=== PATIENT | female | born 1950 | race Hispanic/Latino ===

== ENCOUNTER → 2018-03-23 | Outpatient (CLI) | payer MEDICARE ==
[~2018-03-23] MED LIST: ASPI-555 PO; FURO20TA4 PO; LORA10TA7 PO; OMEP20CA10 PO; OXYB5TAB10 PO; POTA-79 PO; PREG50 PO; SERT100T12 PO
== END | disposition home or self-care (01) ==
LOC: OIH 07:42
PROVIDERS: ATTEND Surgery
DX: K40.90 Unilateral inguinal hernia, without obstruction or gangrene, not specified as recurrent (principal); K57.90 Diverticulosis of intestine, part unspecified, without perforation or abscess without bleeding; I70.90 Unspecified atherosclerosis; M47.895 Other spondylosis, thoracolumbar region
CPT/HCPCS: 74176

== ENCOUNTER 2018-08-03 11:30 | Observation (INO) | payer MEDICARE ==
[~2018-08-03] VITALS: Ht 149.9 cm; Wt 86.8 kg
[~2018-08-03 11:30] MED LIST changes: -FURO20TA4 PO; -OMEP20CA10 PO; -POTA-79 PO; -PREG50 PO; -SERT100T12 PO
[2018-08-03] MEDS ORDERED: RANI150T7 PO (12:51)
[2018-08-03] MEDS ORDERED: ALEN70TA10 PO (12:51)
[2018-08-03] MEDS ORDERED: CHOL500050 PO (12:51)
[2018-08-03] MEDS ORDERED: SIMV40TA59 PO (12:51)
[2018-08-03] MEDS ORDERED: EMPA1TAB11 PO (12:51)
[2018-08-03] MEDS ORDERED: MONT10TA24 PO (12:51)
[2018-08-03] MEDS ORDERED: MULT-1258 PO (12:51)
[2018-08-03] MEDS ORDERED: FURO40TA5 PO (12:51)
[2018-08-03] MEDS ORDERED: ACET650T9 PO (12:51)
[2018-08-03] MEDS ORDERED: ESCI10TA54 PO (12:51)
[2018-08-03] MEDS ORDERED: IBUP-2070 PO (12:51)
[2018-08-03] MEDS ORDERED: SPIR50TA5 PO (12:51)
[2018-08-03 12:53] VITALS: BP 132/60
[2018-08-03] MEDS ORDERED: LOSA50TA64 PO (13:34)
[2018-08-04] VITALS (24 sets, daily range): BP systolic 100–164; BP diastolic 46–81
[2018-08-04] MEDS: CEFAZOLIN SODIUM 1 GM VIAL IVP SCH ×3 (05:00→18:27)
[2018-08-04] MEDS ORDERED: LACTATED RINGERS 1000ML 1,000 ML IV ONE (10:30)
--- NOTE | 2018-08-04 10:30 | NUR ---
DIABETIC pt denies she is diabetic ,is taking synjardy 12.5/500mg for weight loss
[2018-08-04] MEDS ORDERED: ROPIVACAINE 0.5% 5MG/ML 30ML IJ ONE (11:10)
[2018-08-04] MEDS ORDERED: DEXAMETHASONE SOD PHOSPHATE 10MG/ML 1ML VIAL ONE (12:37)
[2018-08-04] MEDS ORDERED: MIDAZOLAM HCL 1 MG/ML 2ML VIAL ONE (12:37)
[2018-08-04] MEDS ORDERED: LIDOCAINE PF 2% 5ML ABBOJECT ONE (12:37)
[2018-08-04] MEDS ORDERED: ONDANSETRON HCL 4 MG/2 ML VIAL ONE ×2 (12:37→15:34)
[2018-08-04] MEDS ORDERED: PROPOFOL 10 MG/ML 20ML VIAL IV ONE (12:37)
[2018-08-04] MEDS ORDERED: FENTANYL CITRATE PF 50 MCG/1 ML 2ML VIAL ONE (12:38)
[2018-08-04] MEDS ORDERED: ROCURONIUM 10MG/1ML SYR 10 MG/ML ML ONE (12:41)
[2018-08-04] MEDS ORDERED: EPHEDRINE SULFATE 50 MG/ML AMPULE ONE (12:54)
[2018-08-04] MEDS ORDERED: NEOSTIGMINE 5MG/5ML SYR IV ONE (14:14)
[2018-08-04] MEDS ORDERED: GLYCOPYRROLATE 1 MG/5 ML SYRINGE ONE (14:14)
[2018-08-04] MEDS ORDERED: MAGNESIUM HYDROXIDE 30 ML/UDCUP PO PRN (16:15)
[2018-08-04] MEDS ORDERED: BISACODYL 10 MG SUPP.RECT RC PRN (16:15)
[2018-08-04] MEDS ORDERED: ACETAMINOPHEN 325 MG TAB PO PRN ×2 (16:15→22:15)
[2018-08-04] MEDS ORDERED: DEXTROSE 5%-LACTATED RINGERS 1,000 ML IV SCH (16:15)
[2018-08-04] MEDS ORDERED: PROMETHAZINE HCL 25 MG/ML 1ML AMPULE IM PRN (16:15)
[2018-08-04 18:56] LABS: HEMATOCRIT 36.1 % (36-48)
--- NOTE | 2018-08-04 22:20 | NUR ---
consult hospitalist sherry cervantes pac to see and examen patient with orders
[2018-08-04] MEDS: MORPHINE SULFATE 10 MG/ML 1ML VIAL IM PRN (23:08)
[2018-08-05] VITALS: BP 106/40
[2018-08-05 00:47] LABS: HEMATOCRIT 33.3 % (36-48)
[2018-08-05] MEDS: CEFAZOLIN SODIUM 1 GM VIAL IVP SCH ×2 (02:24→11:01)
[2018-08-05] MEDS ORDERED: HYDROMORPHONE 1 MG/1 ML AMP ONE (02:26)
[2018-08-05] MEDS ORDERED: HYDROMORPHONE HCL 2 MG/ML VIAL IVP ONE (02:30)
[2018-08-05 04:00] VITALS: BP 119/57
[2018-08-05] MEDS ORDERED: HYDROCODONE/ACETAMINOPHEN 5/325 MG TAB ONE (05:57)
[2018-08-05] MEDS ORDERED: HYDROCODONE/ACETAMINOPHEN 5/325 MG TAB PO PRN (06:00)
[2018-08-05 06:06] LABS: HEMATOCRIT 34.9 % (36-48)
[2018-08-05 08:00] VITALS: BP 116/57
[2018-08-05] MEDS ORDERED: LOSARTAN 50 MG TABLET PO SCH (09:00)
[2018-08-05] MEDS ORDERED: ASPIRIN 81 MG EC TAB PO SCH (09:00)
[2018-08-05] MEDS ORDERED: FUROSEMIDE 40 MG TABLET PO SCH (09:00)
[2018-08-05] MEDS ORDERED: CITALOPRAM 20 MG TABLET PO SCH (09:00)
[2018-08-05] MEDS ORDERED: SPIRONOLACTONE 25 MG TAB PO SCH (09:00)
[2018-08-05] MEDS ORDERED: RANITIDINE HCL 15 MG/1 ML PO SCH (09:00)
[2018-08-05] MEDS ORDERED: LORATADINE 10 MG TABLET PO SCH (09:00)
[2018-08-05] MEDS: MORPHINE SULFATE 10 MG/ML 1ML VIAL IM PRN (09:01)
[2018-08-05] MEDS: OXYBUTYNIN CHLORIDE 5 MG TABLET PO SCH ×2 (09:27→14:00)
[2018-08-05 11:00] VITALS: BP 110/58
[2018-08-05] MEDS: HYDROCODONE/ACETAMINOPHEN 5/325 MG TAB PO PRN ×2 (11:19→16:08)
--- NOTE | 2018-08-05 12:00 | NUR ---
DCP CM met with pt discussed dc plans. Pt is independent prior to admission, lives at home alone, sister lives close by. Denies any equipments/services. Pt feels safe to go back home, still drives, sister will be assisting with transportation and needs on dc. DC plan to home once stable. CM to cont to follow up. Addendum: 08/05/18 at 1201 by JG AGUSTIN LVN CM Amended: Links added.
--- NOTE | 2018-08-05 14:11 | NUR ---
PAGED HOSPITALIST PAGED HOSPITALIST TO REPORT DR. OTOOLE ORDERED TO DISCHARGE PATIENT TODAY. HOSPITALIST TO WRITE RX FOR PAIN MEDICATION UPON DISCHARGE. WAITING CALLBACK.
[2018-08-05] MEDS ORDERED: MONTELUKAST SODIUM 10 MG TAB PO SCH (17:00)
--- NOTE | 2018-08-05 18:00 | NUR ---
DISCHARGE DISCHARGE TEACHING PROVIDED TO PATIENT. RX TEACHING GIVEN TO PATIENT AND HER SON WONG AKERS. RIGHT SHOULDER DRESSING CHANGE, RIGHT SHOULDER INCISION APPROXIMATED AND SUTURES IN PLACE, CLEANSED WITH BETADINE, APPLIED NONADHERENT GAUZE, SECURED WITH TEGADERM. APPLIED ABD PAD OVER DRESSING AND SECURED WITH MEDIPORE TAPE. REMOVED 30G IV FROM RIGHT AC, CATHETER INTACT. RIGHT ARM SLING WITH ABDUCTOR PILLOW IN PLACE AT TIME OF DISCHARGE. PATIENT TO CALL DR. OTOOLE'S OFFICE TO SCHEDULE F/U APPT NEXT COPY PATIENTS SON, WONG AKERS, SIGNED DISCHARGE TEACHING AND VERBALIZED UNDERSTANDING OF DISCHARGE TEACHING. PATIENT TO BE DRIVEN HOME BY HER SON. COPY OF DR. OTOOLE DISCHARGE INSTRUCTIONS GIVEN TO PATIENT. Addendum: 08/05/18 at 1934 by MIKO JOSE RN RN 20G* IV
[2018-08-05] MEDS ORDERED: SIMVASTATIN 20 MG TABLET PO SCH (21:00)
== END 2018-08-05 17:48 | disposition home or self-care (01) ==
LOC: EDSTATUS 11:30 → DAHIP 08-04 09:32 → 4BH 08-04 14:46
DX: M75.101 Unspecified rotator cuff tear or rupture of right shoulder, not specified as traumatic (principal); M75.41 Impingement syndrome of right shoulder; E78.5 Hyperlipidemia, unspecified; I10 Essential (primary) hypertension; K21.9 Gastro-esophageal reflux disease without esophagitis; M19.019 Primary osteoarthritis, unspecified shoulder; F32.9 Major depressive disorder, single episode, unspecified; Z82.0 Family history of epilepsy and other diseases of the nervous system; Z82.3 Family history of stroke; Z82.49 Family history of ischemic heart disease and other diseases of the circulatory system; Z83.3 Family history of diabetes mellitus; Z79.899 Other long term (current) drug therapy; Z88.8 Allergy status to other drugs, medicaments and biological substances
CPT/HCPCS: 23130; 23412; 36415 ×2; 85014 ×4; 85018 ×4; 88304; 88311; 94760; 96372 ×2; 96374; 96376; 97039; 97116 ×2; 97161; A4218 ×2; A4606; A4930 ×2; A6223; C1713 ×2; G0378 ×33; G8978; G8979; G8980; G8981; G8982; G8983; J0690 ×4; J1100; J1170; J2001; J2250; J2270 ×2; J2405 ×2; J2550; J2704; J2710; J2795; J3010; J3490 ×2; J7120 ×2

== ENCOUNTER → 2023-10-11 | Outpatient (CLI) | payer MEDICARE ==
[~2023-10-11] MED LIST changes: +ALEN70TA80 PO; -ASPI-555 PO; +CHOL500050 PO; +DOCU-270 PO; +ESCI-8 PO; +ESCI10TA PO; +FERS325 PO; +FURO40TA5 PO; +IBUP-2070 PO; +IOHEXOL 350 MG/ML 100ML INFUS..BTL IV ONE; -LORA10TA7 PO; +LOSA50TA64 PO; +METF-444 PO; +MONT-39 PO; +MULT-1258 PO; +OMEP40CA21 PO; -OXYB5TAB10 PO; +OXYB5TAB20 PO; +RANI150T7 PO; +SIMV40TA59 PO; +SPIR50TA5 PO
== END | disposition home or self-care (01) ==
LOC: RAH 10:00
PROVIDERS: ATTEND Student in an Organized Health Care Education/Training Program
DX: Z13.6 Encounter for screening for cardiovascular disorders (principal); R07.9 Chest pain, unspecified
CPT/HCPCS: 75574; Q9967 ×2

== ENCOUNTER → 2023-10-11 | Outpatient (CLI) | payer MEDICARE ==
[~2023-10-11] MED LIST changes: -IOHEXOL 350 MG/ML 100ML INFUS..BTL IV ONE
== END | disposition home or self-care (01) ==
LOC: SHCH 09:24
PROVIDERS: ATTEND Student in an Organized Health Care Education/Training Program
DX: I82.403 Acute embolism and thrombosis of unspecified deep veins of lower extremity, bilateral (principal); R60.9 Edema, unspecified; R06.02 Shortness of breath
CPT/HCPCS: 93925; 93970

== ENCOUNTER → 2023-10-18 | Outpatient (CLI) | payer MEDICARE | END | disposition home or self-care (01) | LOC: SHCH 13:14 | PROVIDERS: ATTEND Student in an Organized Health Care Education/Training Program | DX: I08.3 Combined rheumatic disorders of mitral, aortic and tricuspid valves (principal); R07.9 Chest pain, unspecified | CPT/HCPCS: 93306 ==

== ENCOUNTER → 2024-01-19 | Outpatient (CLI) | payer MEDICARE | END | disposition home or self-care (01) | LOC: RAH 09:51 | PROVIDERS: ATTEND Family Medicine | DX: M47.812 Spondylosis without myelopathy or radiculopathy, cervical region (principal); M48.02 Spinal stenosis, cervical region; M54.2 Cervicalgia | CPT/HCPCS: 72040 ==

== ENCOUNTER → 2024-09-07 | Outpatient (CLI) | payer MEDICARE, MEDICAID ==
--- NOTE | 2024-09-07 12:24 | HMCIMG ---
SHOULDER COMP 2+VWS LT HISTORY: Left shoulder pain COMPARISON: None TECHNIQUE: 2 images of left shoulder were obtained. FINDINGS: There is no acute displaced fracture or dislocation. Degenerative changes are seen. IMPRESSION: 1. Findings as described above.
== END | disposition home or self-care (01) ==
LOC: RAH 11:41
PROVIDERS: ATTEND Family Medicine
DX: M19.012 Primary osteoarthritis, left shoulder (principal); M25.512 Pain in left shoulder
CPT/HCPCS: 73030

== ENCOUNTER → 2025-02-23 | Outpatient (CLI) | payer MEDICARE, MEDICAID ==
[~2025-02-23] MED LIST changes: +IBUP-1492 PO; -IBUP-2070 PO
--- NOTE | 2025-02-24 08:14 | HMCIMG ---
EXAM: MR Right Upper Extremity Without IV Contrast, Shoulder CLINICAL HISTORY: M75.101 ??? Unspecified rotator cuff tear or rupture of right shoulder, not specified as traumatic. TECHNIQUE: Multisequence, multiplanar magnetic resonance imaging of the right shoulder performed without intravenous contrast. Series acquired: AX T1, AX STIR, COR T2, COR STIR, SAG T2, SAG PD FS PROPELLER sequences. CONTRAST: None. COMPARISON: None provided. FINDINGS: TENDONS: Supraspinatus: Chronic tendinosis with diffuse thinning and altered signal intensity. A partial-thickness articular surface tear involves approximately 30???40 % of tendon fibres (Ellman Grade 2). No full-thickness component or tendon retraction. Associated subchondral marrow oedema noted along the greater tuberosity. Infraspinatus: Mild tendinosis without discrete tear. Subscapularis: Intact. Teres Minor: Intact. Long Head of Biceps: Mild tendinosis near the bicipital groove, maintaining normal course. JOINTS: Glenohumeral Joint: Alignment preserved. Mild articular cartilage thinning; no effusion or labral tear. Acromioclavicular Joint: Severe degenerative osteoarthritis (ACR Grade III???IV) with joint-space loss, articular margin irregularity, subchondral sclerosis, and inferior osteophyte formation impinging upon the supraspinatus myotendinous junction. Acromion Type II morphology. BONES: No acute fracture or destructive lesion. Subchondral oedema along the greater tuberosity. Metallic anchor screw fixation within the greater tuberosity???suggest prior surgical repair. MUSCLES: Supraspinatus, infraspinatus, and deltoid muscles demonstrate mild atrophy and fatty infiltration (Goutallier Grade I???II). MISCELLANEOUS: No significant joint effusion or subacromial???subdeltoid bursitis. No paralabral cyst or focal mass. 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 Conservative physiotherapy and activity modification recommended; arthroscopic evaluation if persistent pain or weakness. 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 * Mild rotator-cuff muscle atrophy with fatty infiltration (Goutallier Grade I???II) indicating chronicity but preserved muscle function . * Post-surgical anchor screw within the greater tuberosity consistent with prior cuff repair; correlate clinically to confirm integrity and rule out re-tear. /[place]
== END | disposition home or self-care (01) ==
LOC: RAH 10:35
PROVIDERS: ATTEND Orthopaedic Surgery
DX: M19.011 Primary osteoarthritis, right shoulder (principal); M75.101 Unspecified rotator cuff tear or rupture of right shoulder, not specified as traumatic; M67.811 Other specified disorders of synovium, right shoulder; M62.511 Muscle wasting and atrophy, not elsewhere classified, right shoulder
CPT/HCPCS: 73221